=== PATIENT | female | born 1950 | race Caucasian/White ===

== ENCOUNTER 2022-06-30 13:25 | Emergency (ER) | payer OTHER ==
[~2022-06-30] VITALS: Ht 157.5 cm; Wt 55.0 kg
[2022-06-30] MEDS ORDERED: FAMOTIDINE 20MG/2ML VIAL IV STA (18:36)
[2022-06-30] MEDS ORDERED: ONDANSETRON HCL 4MG/2ML INJ IV STA (18:36)
[2022-06-30] MEDS ORDERED: KETOROLAC 30MG/ML VIAL IV STA (18:36)
[2022-06-30] MEDS ORDERED: SODIUM CHLORIDE 0.9% 1,000 ML IV ONE (18:45)
[2022-06-30 19:08] LABS: BASOPHILS % 0.3 % (0.0-2.0); EOSINOPHILS % 0.2 % (0.0-5.0); HEMATOCRIT. 33.7 % (36.0-48.0); HEMOGLOBIN. 11.4 g/dL (12.0-16.0); LYMPHOCYTES % 14.8 % (20.0-50.0); MEAN CORPUSCULAR HEMOGLOBIN 32.7 pg (28.0-32.0); MEAN CORPUSCULAR VOLUME 96.2 fL (81.0-99.0); MEAN PLATELET VOLUME 7.4 fl (7.4-10.4); MONOCYTES % 9.9 % (2.0-8.0); NEUTROPHILS % 74.8 % (40.0-76.0); PLATELET 205 x1000/uL (130-400); RED CELL DISTRIBUTION WIDTH 13.2 % (11.6-14.6)
[2022-06-30 19:16] LABS: INR 1.1; PROTHROMBIN TIME 11.8 sec (9.6-11.0)
[2022-06-30 19:23] LABS: CHLORIDE 98 mEq/L (98-107)
[2022-06-30] MEDS ORDERED: IOHEXOL-300 100 ML BOTTLE ONE (19:32)
[2022-06-30] MEDS ORDERED: DIATR MEGLU/DIATRIZOATE SOLN 30ML ONE (19:33)
[2022-06-30 20:12] LABS: CLARITY URINE CLEAR (CLEAR); COLOR URINE YELLOW (YELLOW); KETONES URINE NEGATIVE (NEGATIVE); LEUKOCYTE ESTERASE URINE NEGATIVE (NEGATIVE); NITRITE URINE NEGATIVE (NEGATIVE); OCCULT BLOOD URINE NEGATIVE (NEGATIVE); PROTEIN URINE NEGATIVE (NEGATIVE); SPECIFIC GRAVITY URINE 1.005 (1.005-1.030); UROBILINOGEN URINE 0.2 E.U./dL (0.2-1.0)
[2022-06-30] MEDS ORDERED: SODIUM CHLORIDE 0.9% 1,000 ML IV NR (20:15)
[2022-06-30] MEDS ORDERED: KETOROLAC 30MG/ML VIAL IV NR (20:30)
[2022-06-30] MEDS ORDERED: FAMOTIDINE 20MG/2ML VIAL IV NR (20:30)
[2022-06-30] MEDS ORDERED: ONDANSETRON HCL 4MG/2ML INJ IV NR (20:30)
[2022-07-01 00:30] VITALS: BP 118/68
== END 2022-07-01 00:30 | disposition home or self-care (01) ==
LOC: ER 13:25
DX: R10.9 Unspecified abdominal pain (principal); M19.90 Unspecified osteoarthritis, unspecified site; E78.00 Pure hypercholesterolemia, unspecified; E03.9 Hypothyroidism, unspecified
CPT/HCPCS: 36415; 74177; 80053; 81003; 83690; 85025; 85610; 96361; 96374; 96375; 99285; J1885; J2405; J3490; J7030; Q9963; Q9967